=== PATIENT | female | born 1990 | race Caucasian/White ===

== ENCOUNTER 2017-02-15 17:15 | Emergency (ER) | payer BC, OTHER ==
[2017-02-15 17:19] VITALS: BMI 27.0
[2017-02-15 17:24] VITALS: O2SAT 99
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
[2017-02-15 19:08] VITALS: BP 124/72; PULSE 75; RESP 18; TEMP 98.3
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
== END 2017-02-15 19:13 | disposition home or self-care (01) ==
LOC: C.ER 17:15
DX: S93.401A Sprain of unspecified ligament of right ankle, initial encounter (principal); S93.601A Unspecified sprain of right foot, initial encounter; S00.83XA Contusion of other part of head, initial encounter; Y08.89XA Assault by other specified means, initial encounter

== ENCOUNTER 2018-08-12 14:49 | Emergency (ER) | payer SELFPAY ==
[2018-08-12 14:49] VITALS: BMI 27.0
[2018-08-12 14:58] VITALS: BP 132/85; PULSE 87; RESP 16; TEMP 98.8; O2SAT 98
[2018-08-12 15:24] LABS: HCG,QUALITATIVE URINE NEGATIVE (NEGATIVE)
[2018-08-12 15:27] LABS: SQUAMOUS EPITHIAL 1 /hpf (0-5); URINE BILIRUBIN NEGATIVE (NEGATIVE); URINE BLOOD NEGATIVE (NEGATIVE); URINE CLARITY Clear (Clear); URINE COLOR Yellow (YELLOW); URINE GLUCOSE (UA) NORMAL (Normal); URINE LEUKOCYTE ESTERASE TRACE Leu/uL (Negative); URINE PROTEIN NEGATIVE (NEGATIVE); URINE UROBILINOGEN NORMAL mg/dL (0.2-1.0)
--- NOTE | 2018-08-12 15:27 | C.PDOC ---
History Of Present Illness 28 y/o female presents to the ED for evaluation of vaginal irritation for the past few days associated with thick whit discharges. Patient reports similar symptoms in the past, consistent with yeast infection. Otherwise, pt denies fever, chills, recent abx use, sore throat, abdominal pain, V/D, UTI symptoms, back pain, hematuria. Ambulate to Ed for evaluation, not in any apparent distress.. Time Seen by Provider: 08/12/18 14:55 Chief Complaint (Nursing): Female Genitourinary History Per: Patient History/Exam Limitations: no limitations Onset/Duration Of Symptoms: Days Current Symptoms Are (Timing): Still Present Past Medical History Reviewed: Historical Data, Nursing Documentation, Vital Signs Vital Signs: Last Vital Signs Temp 98.8 F 08/12/18 14:55 Pulse 87 08/12/18 14:55 Resp 16 08/12/18 14:55 BP 132/85 08/12/18 14:55 Pulse Ox 98 08/12/18 15:29 - Medical History PMH: Denies: Depression - [facility] Procedures INJECT/INFUSE NEC (01/20/13) Family History: States: No Known Family Hx - Social History Hx Tobacco Use: No Hx Alcohol Use: Yes Hx Substance Use: No - Immunization History Hx Tetanus Toxoid Vaccination: No Hx Influenza Vaccination: No Hx Pneumococcal Vaccination: No Review Of Systems Except As Marked, All Systems Reviewed And Found Negative. Constitutional: Negative for: Fever, Chills Gastrointestinal: Negative for: Nausea, Vomiting, Abdominal Pain, Diarrhea Genitourinary: Positive for: Vaginal Discharge. Negative for: Dysuria, Frequency, Incontinence, Hematuria Musculoskeletal: Negative for: Back Pain Neurological: Negative for: Weakness, Numbness Physical Exam - Physical Exam Appears: Well, Non-toxic, No Acute Distress Skin: Normal Color, Warm, No Rash Head: Normacephalic Eye(s): bilateral: PERRL Throat: No Erythema Neck: Trachea Midline, Supple Gastrointestinal/Abdominal: Bowel Sounds (normal), Soft, No Tenderness, No Distention, No Guarding, No Rebound Back: No CVA Tenderness Pelvic: Vaginal Discharge (Vaginal discharge, moderate, white and thick in consistency), No Cervical Motion Tenderness, Other (Mild vulvar erythema and edema) Extremity: Normal ROM Neurological/Psych: Oriented x3, Normal Speech, Normal Motor, Normal Sensation, Normal Reflexes ED Course And Treatment - Laboratory Results Urine POC: Negative O2 Sat by Pulse Oximetry: 98 (RA) Pulse Ox Interpretation: Normal Progress Note: On re-evaluation, pt is afebrile, hemodynamicaly stable. Non- toxic. ENT: No acute findings. Abd: benign, (-) guarding, (-) rebound. back: (-) CVA tenderness. UA- normal study. preg (-). Pt has clinical findings c/w vulvovaginitis candidial. Pt advised ocn oruse of ds. ref. to f/u with OPERATIONS AND INTELLIGENCE ASSISTANT in 2-3 days for re-eval. Disposition Counseled Patient/Family Regarding: Studies Performed, Diagnosis, Need For Followup, Rx Given - [facility]position [facility] Disposition: HOME/ ROUTINE Disposition Time: 15:53 Condition: STABLE Additional Instructions: Encourage fluids Take medication as prescribed Follow up with [facility]PERATIONS AND INTELLIGENCE ASSISTANT In 2-3 days for re-evaluation. Return to ED if any worsening or new changes. Prescriptions: Miconazole/Cleanser 17 On Wipe [Monistat 7 Combination Pack] 1 supp VG HS #1 kit Instructions: Vaginal Yeast Infection (DC) Forms: [employer] ([place]) - Clinical Impression Clinical Impression: Vulvovaginal candidiasis - PA / [employer] / Resident Statement MD/DO has reviewed & agrees with the documentation as recorded. - Scribe Statement The provider has reviewed the documentation as recorded by the Scribe (Megan Win) All medical record entries made by the Scribe were at my direction and personally dictated by me. I have reviewed the chart and agree that the record accurately reflects my personal performance of the history, physical exam, medical decision making, and the department course for this patient. I have also personally directed, reviewed, and agree with the discharge instructions and disposition.
== END 2018-08-12 16:10 | disposition home or self-care (01) ==
LOC: C.ER 14:49
DX: B37.3 Candidiasis of vulva and vagina (principal)